=== PATIENT | male | born 2000 | race Caucasian/White ===

== ENCOUNTER 2023-01-25 22:36 | Emergency (ER) | payer MEDICAID ==
[~2023-01-25] VITALS: Ht 185.4 cm; Wt 117.9 kg
[2023-01-26] MEDS ORDERED: IBUPROFEN 800 MG TABLET PO ONE (00:45)
[2023-01-26] MEDS ORDERED: ACETAMINOPHEN 500 MG TABLET PO ONE (00:45)
[2023-01-26] MEDS ORDERED: ACET325T53 PO (01:10)
[2023-01-26] MEDS ORDERED: IBUP-1969 PO (01:10)
[2023-01-26 01:16] VITALS: BP_SYST 132
== END 2023-01-26 01:16 | disposition home or self-care (01) ==
LOC: SED 22:36
DX: S63.641A Sprain of metacarpophalangeal joint of right thumb, initial encounter (principal); Z79.899 Other long term (current) drug therapy; W22.8XXA Striking against or struck by other objects, initial encounter; Y93.89 Activity, other specified; Y92.89 Other specified places as the place of occurrence of the external cause; Y99.8 Other external cause status
CPT/HCPCS: 99283